=== PATIENT | female | born 1960 | race African-American/Black ===

== ENCOUNTER 2024-04-15 11:14 | Emergency (ER) | payer MEDICAID, OTHER ==
[~2024-04-15] VITALS: Ht 167.6 cm; Wt 69.0 kg
[2024-04-15] MEDS ORDERED: losartan (11:18)
[2024-04-15] MEDS ORDERED: pravastatin (11:18)
[2024-04-15] MEDS ORDERED: zanaflex (11:18)
[2024-04-15] MEDS ORDERED: amlodipine (11:18)
[2024-04-15 11:19] VITALS: O2SAT 99
[2024-04-15 12:15] LABS: EOSINOPHILS % 1.9 % (0.0-5.0); HEMATOCRIT. 38.4 % (36.0-48.0); HEMOGLOBIN. 12.7 g/dL (12.0-16.0); LYMPHOCYTES % 27.3 % (20.0-50.0); MEAN CORPUSCULAR HEMOGLOBIN 26.5 pg (28.0-32.0); MEAN CORPUSCULAR VOLUME 80.4 fL (81.0-99.0); MEAN PLATELET VOLUME 9.4 fl (7.4-10.4); MONOCYTES % 6.1 % (2.0-8.0); NEUTROPHILS % 63.7 % (40.0-76.0); PLATELET 195 x1000/uL (130-400); RED BLOOD CELL COUNT 4.78 mill/uL (4.2-5.4); RED CELL DISTRIBUTION WIDTH 15.9 % (11.6-14.6); WHITE BLOOD COUNT 4.4 x1000/uL (4.5-11.0)
[2024-04-15 12:22] LABS: CHLORIDE 110 mEq/L (98-107); POTASSIUM 3.9 mEq/L (3.5-5.1); SODIUM 139 mEq/L (136-145)
[2024-04-15 12:23] LABS: CARBON DIOXIDE 24 mEq/L (21-32)
[2024-04-15 12:28] LABS: CREATININE 0.8 mg/dL (0.6-1.0); GLUCOSE 98 mg/dL (70-105); UREA NITROGEN BLOOD 12 mg/dL (9-23)
[2024-04-15 12:29] LABS: TROPONIN I HIGH SENSITIVITY 4 ng/L (3.0-34)
[2024-04-15] MEDS: SODIUM CHLORIDE 0.9% 1,000 ML IV ONE (12:30)
[2024-04-15 12:31] LABS: ETHANOL BLOOD < 10 mg/dL (<10)
[2024-04-15 13:49] LABS: CLARITY URINE CLEAR (CLEAR); COLOR URINE YELLOW (YELLOW); GLUCOSE URINE NEGATIVE (NEGATIVE); KETONES URINE TRACE (NEGATIVE); LEUKOCYTE ESTERASE URINE NEGATIVE (NEGATIVE); NITRITE URINE NEGATIVE (NEGATIVE); OCCULT BLOOD URINE NEGATIVE (NEGATIVE); PROTEIN URINE NEGATIVE (NEGATIVE); SPECIFIC GRAVITY URINE 1.003 (1.005-1.030); UROBILINOGEN URINE 0.2 E.U./dL (0.2-1.0)
[2024-04-15 14:03] LABS: *AMPHETAMINES SCREEN URINE NEGATIVE (NEGATIVE); *BARBITURATES SCREEN URINE NEGATIVE (NEGATIVE); *BENZODIAZEPINES SCREEN URINE NEGATIVE (NEGATIVE); *COCAINE SCREEN URINE NEGATIVE (NEGATIVE); CANNABINOID URINE SCREEN NEGATIVE (NEGATIVE); ECSTASY MDMA SCREEN URINE NEGATIVE (NEGATIVE); METHADONE URINE SCREEN NEGATIVE (NEGATIVE); OPIATES URINE SCREEN NEGATIVE (NEGATIVE); PHENCYCLIDINE URINE SCREEN NEGATIVE (NEGATIVE)
[2024-04-15 14:14] LABS: PARTIAL THROMBOPLASTIN TIME 26.3 sec (23.4-31.0); PROTHROMBIN TIME 10.7 sec (9.6-11.0)
[2024-04-15 14:16] LABS: TROPONIN I HIGH SENSITIVITY 4 ng/L (3.0-34)
[2024-04-15 15:37] VITALS: BP 117/62; PULSE 67; RESP 19; TEMP 37.00296; O2SAT 97
== END 2024-04-15 15:44 | disposition home or self-care (01) ==
LOC: ER 11:14
DX: R42 Dizziness and giddiness (principal); I10 Essential (primary) hypertension; Z88.5 Allergy status to narcotic agent
CPT/HCPCS: 80305; 80048; 81003; 80320; 83880; 83690; 85025; 85610; 85730; 84484; 36415; 71045; 70450; 93005; 96360; 99285; J7030; Z7610 ×3; G0480